=== PATIENT | female | born 1935 | race Caucasian/White ===

== ENCOUNTER 2018-04-24 22:08 | Inpatient (IN) | payer MEDICARE, MEDICAID ==
[~2018-04-24] VITALS: Ht 157.5 cm; Wt 73.5 kg
[~2018-04-24 22:08] MED LIST: ACTOS15 MG ORAL; ALBUTEROL SULF8.5 GM INH; ALLOPURINOL100 M1 ORAL; ATENOLOL25 MG ORAL; AZITHROMYCIN250 MG ORAL; CRESTOR10 M2 ORAL; DIOVAN80 MG ORAL; FUROSEMIDE20 M1 ORAL; GUAIFENESIN-CO118 M1 ORAL; NEXIUM2.5 MG ORAL
[2018-04-24] MEDS ORDERED: Solu-MEDROL 125mg Inj IVP ONE (22:15)
[2018-04-24 22:20] VITALS: BP 182/79
[2018-04-24 22:38] LABS: BASOPHILS % (AUTO) 1.3 % (0.0-2.0); EOSINOPHILS % (AUTO) 1.1 % (0.0-3.0); HEMATOCRIT 40.1 % (37.0-47.0); HEMOGLOBIN 13.7 G/DL (12.0-16.0); LYMPHOCYTES % (AUTO) 33.4 % (20.0-45.0); MEAN CORPUSCULAR VOLUME 89 FL (80-99); MONOCYTES % (AUTO) 5.3 % (1.0-10.0); NEUTROPHILS % (AUTO) 58.9 % (45.0-75.0); PLATELET COUNT 148 K/UL (150-450); RED CELL DISTRIBUTION WIDTH 11.6 % (11.6-14.8); WHITE BLOOD COUNT 8.7 K/UL (4.8-10.8)
[2018-04-24 22:48] LABS: ANION GAP 14 mmol/L (5-15); BLOOD UREA NITROGEN 24 mg/dL (7-18); CALCIUM 10.2 MG/DL (8.5-10.1); CARBON DIOXIDE 21 MMOL/L (21-32); CHLORIDE 102 MMOL/L (98-107); POTASSIUM 3.8 MMOL/L (3.5-5.1); SODIUM 137 MMOL/L (136-145)
[2018-04-24 22:51] LABS: INR 0.9 (0.9-1.1)
[2018-04-24] MEDS ORDERED: Albuterol/Ipratropium 3ml neb HHN ONE (23:00)
[2018-04-24 23:03] LABS: ALANINE AMINOTRANSFERASE 26 U/L (12-78); ALBUMIN 3.7 G/DL (3.4-5.0); ALBUMIN/GLOBULIN RATIO 0.8 (1.0-2.7); ALKALINE PHOSPHATASE 77 U/L (46-116); ASPARTATE AMINO TRANSFERASE 17 U/L (15-37); BILIRUBIN,TOTAL 0.2 MG/DL (0.2-1.0); CKMB 1.6 NG/ML (0.0-3.6); CREATINE KINASE 55 U/L (26-308)
[2018-04-24 23:20] VITALS: BP 170/76
[2018-04-24] MEDS ORDERED: Metoprolol 5mg/5ml Inj IVP ONE (23:45)
[2018-04-24] MEDS ORDERED: Metoprolol 5mg/5ml Inj ONE (23:45)
[2018-04-25] VITALS (7 sets, daily range): BP systolic 137–155; BP diastolic 64–87
--- NOTE | 2018-04-25 00:01 | Emergency Room Report ---
History of Present Illness General Chief Complaint: Upper Respiratory Illness Source: Patient, Family Member Present Illness HPI Is an 82-year-old female with history of asthma and high blood pressure. She presents with cough and respiratory distress. She's been having coughing congestion for about 2 weeks. Worse tonight. Worse with inspiration. Worse with exertion. EMS said that she has rest or distress and they gave her 5 mg of albuterol. Patient denies any chest pain. Coughing is nonproductive in nature. No fever chills but no nausea no vomiting. Allergies: Coded Allergies: No Known Allergies (Verified , 03/10/10) Patient History Past Medical History: see triage record, old chart reviewed, asthma Past Surgical History: none Pertinent Family History: none Social History: Denies: smoking Now: No Immunizations: other Reviewed Nursing Documentation: PMH: Agreed; PSxH: Agreed Nursing Documentation-PMH Past Medical History: No History, Except For Hx Cardiac Problems: Yes - high cholesterol Hx Hypertension: Yes Hx Diabetes: Yes Hx Gastrointestinal Problems: Yes Review of Systems Eye: Denies: eye pain, blurred vision ENT: Denies: ear pain, nose congestion, throat swelling Respiratory: Reports: cough, shortness of breath, wheezing Cardiovascular: Denies: chest pain, palpitations Gastrointestinal: Denies: abdominal pain, diarrhea, nausea, vomiting Musculoskeletal: Denies: back pain, joint pain Skin: Denies: rash Neurological: Denies: headache, numbness Endocrine: Denies: increased thirst, increased urine Hematologic/Lymphatic: Denies: easy bruising All Other Systems: negative except mentioned in HPI Physical Exam Vital Signs Date Time Temp Pulse Resp B/P (MAP) Pulse Ox O2 Delivery O2 Flow Rate FiO2 04/24/18 22:01 98.5 130 19 191/79 100 Room Air 98.4 04/24/18 23:00 21 vitals with tachycardia and hypertension Sp02 EP Interpretation: reviewed, normal General Appearance: well appearing, no apparent distress, alert Head: normocephalic, atraumatic Eyes: bilateral eye PERRL, bilateral eye EOMI ENT: hearing grossly normal, normal pharynx Neck: full range of motion, supple, no meningismus Respiratory: chest non-tender, lungs clear, respiratory distress, accessory muscle use, other - coughing fits Cardiovascular #1: regular rate, rhythm, no murmur, tachycardia Gastrointestinal: normal bowel sounds, non tender, no mass, no organomegaly, no bruit, non-distended Musculoskeletal: back normal, normal range of motion Neurologic: alert, oriented x3, responsive Psychiatric: mood/affect normal Skin: warm/dry Medical Decision Making Diagnostic Impression: Primary Impression: Upper respiratory symptom Additional Impressions: Acute bronchitis with bronchospasm Asthma exacerbation Qualified Codes: J45.901 - Unspecified asthma with (acute) exacerbation Hypertension Qualified Codes: I10 - Essential (primary) hypertension Hyperglycemia ER Course Patient presents with upper respiratory or infection with acute bronchitis with bronchospasm/asthma exacerbation. Better with breathing treatment and steroid. Because of the duration of over 2 weeks, I place her on antibiotics. No evidence of PE, ACS, dissection to name a few. We'll admit because patient still having respiratory problem. I discussed case with Dr. Summers who will admit. Laboratory Tests Test 04/24/18 20:20 04/24/18 23:30 White Blood Count 8.7 K/UL (4.8-10.8) Red Blood Count 4.50 M/UL (4.20-5.40) Hemoglobin 13.7 G/DL (12.0-16.0) Hematocrit 40.1 % (37.0-47.0) Mean Corpuscular Volume 89 FL (80-99) Mean Corpuscular Hemoglobin 30.5 PG (27.0-31.0) Mean Corpuscular Hemoglobin Concent 34.2 G/DL (32.0-36.0) Red Cell Distribution Width 11.6 % (11.6-14.8) Platelet Count 148 K/UL (150-450) L Mean Platelet Volume 9.4 FL (6.5-10.1) Neutrophils (%) (Auto) 58.9 % (45.0-75.0) Lymphocytes (%) (Auto) 33.4 % (20.0-45.0) Monocytes (%) (Auto) 5.3 % (1.0-10.0) Eosinophils (%) (Auto) 1.1 % (0.0-3.0) Basophils (%) (Auto) 1.3 % (0.0-2.0) Prothrombin Time 9.0 SEC (9.30-11.50) L Prothromb Time International Ratio 0.9 (0.9-1.1) Activated Partial Thromboplast Time 20 SEC (23-33) L Sodium Level 137 MMOL/L (136-145) Potassium Level 3.8 MMOL/L (3.5-5.1) Chloride Level 102 MMOL/L (98-107) Carbon Dioxide Level 21 MMOL/L (21-32) Anion Gap 14 mmol/L (5-15) Blood Urea Nitrogen 24 mg/dL (7-18) H Creatinine 1.0 MG/DL (0.55-1.30) Estimat Glomerular Filtration Rate mL/min (>60) Glucose Level 248 MG/DL (74-106) H Calcium Level 10.2 MG/DL (8.5-10.1) H Total Bilirubin 0.2 MG/DL (0.2-1.0) Aspartate Amino Transf (AST/SGOT) 17 U/L (15-37) Alanine Aminotransferase (ALT/SGPT) 26 U/L (12-78) Alkaline Phosphatase 77 U/L (46-116) Total Creatine Kinase 55 U/L (26-308) Creatine Kinase MB 1.6 NG/ML (0.0-3.6) Creatine Kinase MB Relative Index 2.9 Troponin I 0.000 ng/mL (0.000-0.056) Pro-B-Type Natriuretic Peptide 139 pg/mL (0-125) H Total Protein 8.1 G/DL (6.4-8.2) Albumin 3.7 G/DL (3.4-5.0) Globulin 4.4 g/dL Albumin/Globulin Ratio 0.8 (1.0-2.7) L Urine Color Pending Urine Appearance Pending Urine pH Pending Urine Specific [place] Pending Urine Protein Pending Urine Glucose (UA) Pending Urine Ketones Pending Urine Occult Blood Pending Urine Nitrite Pending Urine Bilirubin Pending Urine Urobilinogen Pending Urine Leukocyte Esterase Pending Lab Results Impression labs unremarkable EKG Diagnostic Results Rate: tachycardiac Rhythm: NSR ST Segments: no acute changes Rhythm Strip Diag. Results Rhythm Strip Time: 00:00 EP Interpretation: yes Rate: 95 Rhythm: NSR, no PVC's, no ectopy Chest X-Ray Diagnostic Results Chest X-Ray Diagnostic Results : Chest X-Ray Ordered: Yes # of Views/Limited/Complete: 1 View Indication: Shortness of Breath EP Interpretation: Yes Interpretation: no consolidation, no effusion, no pneumothorax, no acute cardiopulmonary disease Impression: No acute disease Electronically Signed by: John Coto MD Last Vital Signs Date Time Temp Pulse Resp B/P (MAP) Pulse Ox O2 Delivery O2 Flow Rate FiO2 04/24/18 23:48 121 180/80 04/24/18 23:10 21 98 Room Air 21 04/24/18 22:20 98.4 98.4 Status: improved Disposition: ADMITTED INPATIENT Condition: Serious Referrals: NON PHYSICIAN (PCP) JOHN COTO M.D. April 25, 2018 00:01
[2018-04-25 00:11] LABS: APPEARANCE,URINE CLEAR; BILIRUBIN, URINE NEGATIVE (NEGATIVE); COLOR,URINE PALE YELLOW; GLUCOSE, URINE (UA) 4+ (NEGATIVE); KETONES,URINE NEGATIVE (NEGATIVE); LEUKOCYTE ESTERASE ,URINE 1+ (NEGATIVE); NITRITE,URINE NEGATIVE (NEGATIVE); PH,URINE 5 (4.5-8.0); PROTEIN,URINE 2+ (NEGATIVE); UROBILINOGEN,URINE NORMAL MG/DL (0.0-1.0)
[2018-04-25] MEDS ORDERED: Milk of Magnesia 30ml Ud ORAL PRN ×2 (04:30→20:45)
[2018-04-25] MEDS: Albuterol/Ipratropium 3ml neb HHN PRN ×2 (05:48→09:02)
[2018-04-25] MEDS ORDERED: NovoLOG Insulin Flexpen SUBQ SCH (06:30)
[2018-04-25] MEDS: Albuterol 90mcg Inhaler 8gm INH SCH ×5 (07:55→22:40)
--- NOTE | 2018-04-25 08:55 | Diagnostic Imaging Report ---
Indication: Reason For Exam: SOB, cough Technique: XRAY Chest 1v. Comparison: 10/06/2013 Findings: The heart is normal in size. There are no acute pulmonary infiltrates. Scarring is noted adjacent to the left heart border. No pleural fluid. Impression: No acute abnormality. No significant change from previous study. .
[2018-04-25] MEDS ORDERED: metFORMIN 500mg tab ORAL SCH (09:00)
[2018-04-25] MEDS ORDERED: Solu-MEDROL 125mg Inj IVP SCH (09:00)
[2018-04-25] MEDS: Pantoprazole Inj IVP SCH (09:02)
[2018-04-25] MEDS: guaiFENesin w/Codeine 5ml Liq ud ORAL PRN ×2 (09:02→21:51)
[2018-04-25] MEDS: Allopurinol 100mg Tab ORAL SCH (09:04)
[2018-04-25] MEDS: Azithromycin 250mg tab ORAL SCH (09:04)
[2018-04-25] MEDS: Atenolol 25mg tab ORAL SCH (09:04)
[2018-04-25] MEDS: cefTRIAXone 1 GM in D5W 55 ML IVPB SCH (10:44)
[2018-04-25] MEDS: Heparin 5000 units/ml inj SUBQ SCH ×2 (11:00→21:45)
[2018-04-25 11:10] LABS: HEMOGLOBIN 12.3 G/DL (12.0-16.0); MEAN CORPUSCULAR VOLUME 92 FL (80-99); PLATELET COUNT 146 K/UL (150-450); RED BLOOD COUNT 4.02 M/UL (4.20-5.40); RED CELL DISTRIBUTION WIDTH 11.9 % (11.6-14.8); WHITE BLOOD COUNT 10.4 K/UL (4.8-10.8)
[2018-04-25 11:31] LABS: ANION GAP 15 mmol/L (5-15); BLOOD UREA NITROGEN 27 mg/dL (7-18); CALCIUM 9.8 MG/DL (8.5-10.1); CARBON DIOXIDE 21 MMOL/L (21-32); CHLORIDE 104 MMOL/L (98-107); CREATININE 1.3 MG/DL (0.55-1.30); POTASSIUM 4.4 MMOL/L (3.5-5.1); SODIUM 140 MMOL/L (136-145)
[2018-04-25] MEDS: Solu-MEDROL 125mg Inj IVP SCH ×2 (15:27→21:42)
--- NOTE | 2018-04-25 16:15 | History and Physical Report ---
DATE OF ADMISSION: 04/24/2018 REASON FOR ADMISSION: Asthma exacerbation, shortness of breath, and acute bronchospasm. HISTORY OF PRESENT ILLNESS: This is an 82-year-old female with history of asthma, which is intermittent. The patient presents with cough, congestion, and respiratory distress. The patient has been coughing for the past 2 weeks. The patient notes pain with deep inspiration, worse with exertion. The patient did not improve overall. The patient presented to the emergency room and was diagnosed with acute bronchitis, acute bronchospasm. The patient's care discussed and reviewed with the ER physician and the patient in detail. The patient denies the use of inhalers at present. She currently is still concerned that she continues to cough and has difficulty with breathing. The patient has had no ill contacts. No fevers or chills. No chest trauma. The patient's findings reviewed in detail and discussed with the patient. PAST MEDICAL HISTORY: Notable for asthma intermittent, gout, hypertension, reflux disease, and diabetes. MEDICATIONS: Reviewed. ALLERGIES: Reviewed. SOCIAL HISTORY: Nonsmoker and nondrinker. The patient is of [place] descent. PHYSICAL EXAMINATION: GENERAL: A well-developed female, obese, comfortable, alert. VITAL SIGNS: Blood pressure 147/64, pulse 89, respiratory rate 22, saturation 99% on 2 L. HEENT: Negative. NECK: Supple. EXTREMITIES: Grossly intact. LUNGS: With occasional wheezes. Moderate air entry. CARDIAC: S1, S2. Regular rate and rhythm without murmurs, rubs, or gallops. ABDOMEN: Soft, nontender, and nondistended. EXTREMITIES: No cyanosis, clubbing, or edema. NEUROLOGIC: Grossly nonfocal. Alert and oriented x3. LABORATORY DATA: Otherwise reviewed. CBC essentially normal. Chemistry is fairly normal. BUN 24, creatinine 1, blood sugar is 248. The EKG without any acute changes, normal sinus rhythm. Chest x-ray essentially negative. IMPRESSION: Asthma with acute exacerbation, possible mild acute bronchitis, significant cough paroxysms. RECOMMENDATIONS: Supportive care. Empiric antibiotics. Diabetic management. Sliding scale insulin. IV Solu-Medrol and monitor clinically. Cough suppression as needed and hope to proceed with discharge planning pending further improvement. Emre Ishaaya, M.D. DR: IAN JOB#: [id number] CC:
[2018-04-25] MEDS: Insulin NovoLOG Flexpen S/S (Ins resistant) SUBQ SCH ×2 (16:30→21:44)
[2018-04-25] MEDS: Repaglinide 1mg tab ORAL SCH (17:26)
[2018-04-25] MEDS ORDERED: Zolpidem 5mg tab ORAL PRN (21:00)
[2018-04-25] MEDS: Milk of Magnesia 30ml Ud ORAL PRN (21:42)
[2018-04-25] MEDS: Docusate 100mg cap ORAL SCH (22:00)
[2018-04-26] VITALS: BP 116/85
[2018-04-26] MEDS: Albuterol 90mcg Inhaler 8gm INH SCH ×8 (01:04→22:30)
[2018-04-26 04:00] VITALS: BP 141/78
[2018-04-26] MEDS: Solu-MEDROL 125mg Inj IVP SCH ×3 (05:59→21:26)
[2018-04-26] MEDS: Repaglinide 1mg tab ORAL SCH ×2 (06:00→17:09)
[2018-04-26] MEDS: Insulin NovoLOG Flexpen S/S (Ins resistant) SUBQ SCH ×4 (06:03→21:32)
[2018-04-26 08:00] VITALS: BP 143/78
[2018-04-26] MEDS: cefTRIAXone 1 GM in D5W 55 ML IVPB SCH (08:31)
[2018-04-26] MEDS: Pantoprazole Inj IVP SCH (08:31)
[2018-04-26] MEDS: Azithromycin 250mg tab ORAL SCH (08:31)
[2018-04-26] MEDS: Allopurinol 100mg Tab ORAL SCH (08:32)
[2018-04-26] MEDS: Atenolol 25mg tab ORAL SCH (08:32)
[2018-04-26] MEDS: Docusate 100mg cap ORAL SCH ×2 (08:32→17:09)
[2018-04-26] MEDS: Heparin 5000 units/ml inj SUBQ SCH ×2 (08:33→21:27)
--- NOTE | 2018-04-26 11:57 | General Progress Note ---
Assessment/Plan Assessment/Plan IMPRESSION: Asthma with acute exacerbation, possible mild acute bronchitis, significant cough paroxysms. constipation. UTI, diabetes PLAN adjust antibiotics add cefepime dc rocephin solumedrol sliding scale cough syrup monitor as is Subjective Allergies: Coded Allergies: No Known Allergies (Verified , 03/10/10) Subjective cough present but better constipated Objective Last 24 Hour Vital Signs Date Time Temp Pulse Resp B/P (MAP) Pulse Ox O2 Delivery O2 Flow Rate FiO2 04/26/18 11:19 80 16 97 Nasal Cannula 2.0 04/26/18 11:19 80 16 97 Nasal Cannula 2.0 04/26/18 08:32 82 141/78 04/26/18 08:00 97.5 85 18 143/78 93 Nasal Cannula 2.0 97.5 04/26/18 07:00 Nasal Cannula 2.0 04/26/18 07:00 82 18 97 Nasal Cannula 2.0 04/26/18 07:00 2 18 Nasal Cannula 2.0 04/26/18 07:00 97 Nasal Cannula 2.0 04/26/18 07:00 82 18 97 Nasal Cannula 2.0 04/26/18 04:00 97.1 88 22 141/78 95 97.1 04/26/18 04:00 98 Nasal Cannula 2.0 04/26/18 00:00 97.7 102 22 116/85 97 97.7 04/25/18 22:40 95 Nasal Cannula 2.0 04/25/18 22:40 Nasal Cannula 2.0 04/25/18 22:40 92 20 Nasal Cannula 2.0 04/25/18 20:55 95 Nasal Cannula 2.0 04/25/18 20:55 Nasal Cannula 2.0 04/25/18 20:55 90 18 Nasal Cannula 2.0 04/25/18 20:00 98 Nasal Cannula 2.0 04/25/18 20:00 98.3 95 19 141/87 95 98.3 04/25/18 16:00 98.0 92 20 144/78 98 Nasal Cannula 2.0 98.0 04/25/18 12:00 98.0 93 21 146/86 99 Nasal Cannula 2.0 98.0 Intake and Output 04/25/18 04/26/18 19:00 07:00 Intake Total 555 ml 240 ml Balance 555 ml 240 ml Intake Oral 500 ml 240 ml IV Total 55 ml # Voids 3 2 Labs Test 04/24/18 20:20 04/24/18 23:30 04/25/18 10:55 White Blood Count 8.7 K/UL (4.8-10.8) 10.4 K/UL (4.8-10.8) Red Blood Count 4.50 M/UL (4.20-5.40) 4.02 M/UL (4.20-5.40) Hemoglobin 13.7 G/DL (12.0-16.0) 12.3 G/DL (12.0-16.0) Hematocrit 40.1 % (37.0-47.0) 37.0 % (37.0-47.0) Mean Corpuscular Volume 89 FL (80-99) 92 FL (80-99) Mean Corpuscular Hemoglobin 30.5 PG (27.0-31.0) 30.5 PG (27.0-31.0) Mean Corpuscular Hemoglobin Concent 34.2 G/DL (32.0-36.0) 33.1 G/DL (32.0-36.0) Red Cell Distribution Width 11.6 % (11.6-14.8) 11.9 % (11.6-14.8) Platelet Count 148 K/UL (150-450) 146 K/UL (150-450) Mean Platelet Volume 9.4 FL (6.5-10.1) 9.2 FL (6.5-10.1) Neutrophils (%) (Auto) 58.9 % (45.0-75.0) % (45.0-75.0) Lymphocytes (%) (Auto) 33.4 % (20.0-45.0) % (20.0-45.0) Monocytes (%) (Auto) 5.3 % (1.0-10.0) % (1.0-10.0) Eosinophils (%) (Auto) 1.1 % (0.0-3.0) % (0.0-3.0) Basophils (%) (Auto) 1.3 % (0.0-2.0) % (0.0-2.0) Prothrombin Time 9.0 SEC (9.30-11.50) Prothromb Time International Ratio 0.9 (0.9-1.1) Activated Partial Thromboplast Time 20 SEC (23-33) Sodium Level 137 MMOL/L (136-145) 140 MMOL/L (136-145) Potassium Level 3.8 MMOL/L (3.5-5.1) 4.4 MMOL/L (3.5-5.1) Chloride Level 102 MMOL/L (98-107) 104 MMOL/L (98-107) Carbon Dioxide Level 21 MMOL/L (21-32) 21 MMOL/L (21-32) Anion Gap 14 mmol/L (5-15) 15 mmol/L (5-15) Blood Urea Nitrogen 24 mg/dL (7-18) 27 mg/dL (7-18) Creatinine 1.0 MG/DL (0.55-1.30) 1.3 MG/DL (0.55-1.30) Estimat Glomerular Filtration Rate mL/min (>60) mL/min (>60) Glucose Level 248 MG/DL (74-106) 400 MG/DL (74-106) Calcium Level 10.2 MG/DL (8.5-10.1) 9.8 MG/DL (8.5-10.1) Total Bilirubin 0.2 MG/DL (0.2-1.0) Aspartate Amino Transf (AST/SGOT) 17 U/L (15-37) Alanine Aminotransferase (ALT/SGPT) 26 U/L (12-78) Alkaline Phosphatase 77 U/L (46-116) Total Creatine Kinase 55 U/L (26-308) Creatine Kinase MB 1.6 NG/ML (0.0-3.6) Creatine Kinase MB Relative Index 2.9 Troponin I 0.000 ng/mL (0.000-0.056) Pro-B-Type Natriuretic Peptide 139 pg/mL (0-125) Total Protein 8.1 G/DL (6.4-8.2) Albumin 3.7 G/DL (3.4-5.0) Globulin 4.4 g/dL Albumin/Globulin Ratio 0.8 (1.0-2.7) Urine Color Pale yellow Urine Appearance Clear Urine pH 5 (4.5-8.0) Urine Specific [place] 1.010 (1.005-1.035) Urine Protein 2+ (NEGATIVE) Urine Glucose (UA) 4+ (NEGATIVE) Urine Ketones Negative (NEGATIVE) Urine Occult Blood 1+ (NEGATIVE) Urine Nitrite Negative (NEGATIVE) Urine Bilirubin Negative (NEGATIVE) Urine Urobilinogen Normal MG/DL (0.0-1.0) Urine Leukocyte Esterase 1+ (NEGATIVE) Urine RBC 0-2 /HPF (0 - 2) Urine WBC 15-20 /HPF (0 - 2) Urine Squamous Epithelial Cells Few /LPF (NONE/OCC) Urine Bacteria Many /HPF (NONE) Differential Total Cells Counted 100 Neutrophils % (Manual) 90 % (45-75) Lymphocytes % (Manual) 8 % (20-45) Monocytes % (Manual) 2 % (1-10) Eosinophils % (Manual) 0 % (0-3) Basophils % (Manual) 0 % (0-2) Band Neutrophils 0 % (0-8) Platelet Estimate Decreased Platelet Morphology Normal Red Blood Cell Morphology Normal Height (Feet): 5 Height (Inches): 2.00 Weight (Pounds): 158 Objective HEENT: Negative. NECK: Supple. EXTREMITIES: Grossly intact. LUNGS: With some wheezes. Moderate air entry. no rhonchi; noted cough CARDIAC: S1, S2. Regular rate and rhythm without murmurs, rubs, or gallops. ABDOMEN: Soft, nontender, and nondistended. EXTREMITIES: No cyanosis, clubbing, or edema. NEUROLOGIC: Grossly nonfocal. Alert and oriented x3. mEre Summers MD April 26, 2018 11:57
[2018-04-26 12:00] VITALS: BP 153/77
[2018-04-26] MEDS: guaiFENesin w/Codeine 5ml Liq ud ORAL PRN ×2 (14:08→18:37)
[2018-04-26 15:31] VITALS: BP 118/57
[2018-04-26] MEDS: Cefepime HCl 1 GM in D5W 110 ML IVPB SCH (17:12)
[2018-04-26 20:00] VITALS: BP 135/73
[2018-04-26] MEDS ORDERED: Cefepime HCl 1 GM in D5W 110 ML IVPB SCH (21:00)
[2018-04-27] VITALS: BP 127/60
[2018-04-27] MEDS: Albuterol 90mcg Inhaler 8gm INH SCH ×8 (01:07→22:46)
[2018-04-27 04:00] VITALS: BP 137/72
[2018-04-27] MEDS: Repaglinide 1mg tab ORAL SCH ×2 (06:07→17:29)
[2018-04-27] MEDS: Solu-MEDROL 125mg Inj IVP SCH ×3 (06:08→21:57)
[2018-04-27] MEDS: Insulin NovoLOG Flexpen S/S (Ins resistant) SUBQ SCH ×4 (06:10→21:58)
[2018-04-27 08:00] VITALS: BP 132/57
[2018-04-27] MEDS: Pantoprazole Inj IVP SCH (08:48)
[2018-04-27] MEDS: Allopurinol 100mg Tab ORAL SCH (08:48)
[2018-04-27] MEDS: Atenolol 25mg tab ORAL SCH (08:48)
[2018-04-27] MEDS: Azithromycin 250mg tab ORAL SCH (08:48)
[2018-04-27] MEDS: Docusate 100mg cap ORAL SCH ×2 (08:48→18:00)
[2018-04-27] MEDS: Heparin 5000 units/ml inj SUBQ SCH ×2 (08:49→08:52)
[2018-04-27] MEDS ORDERED: cefTRIAXone 1 GM in D5W 110 ML IVPB SCH (09:00)
--- NOTE | 2018-04-27 09:24 | General Progress Note ---
Assessment/Plan Assessment/Plan IMPRESSION: Asthma with acute exacerbation, possible mild acute bronchitis, significant cough paroxysms. constipation. UTI, diabetes PLAN ? po antibiotics solumedrol ?po sliding scale and monitor sugars cough syrup as needed reassurance dc planning soon Subjective Allergies: Coded Allergies: No Known Allergies (Verified , 03/10/10) Subjective some improvement some cough Objective Last 24 Hour Vital Signs Date Time Temp Pulse Resp B/P (MAP) Pulse Ox O2 Delivery O2 Flow Rate FiO2 04/27/18 08:48 77 132/57 04/27/18 08:14 99 Nasal Cannula 2.0 28 04/27/18 08:14 77 18 99 Nasal Cannula 2.0 28 04/27/18 08:14 75 18 97 Nasal Cannula 2.0 28 04/27/18 08:14 78 20 Nasal Cannula 2.0 04/27/18 08:14 Nasal Cannula 2.0 28 04/27/18 08:00 98.1 71 132/57 97 Nasal Cannula 2.0 98.1 04/27/18 04:30 80 18 98 Nasal Cannula 2.0 28 04/27/18 04:20 78 18 96 Nasal Cannula 2.0 28 04/27/18 04:00 97.2 75 20 137/72 96 97.2 04/27/18 04:00 96 Nasal Cannula 2.0 04/27/18 01:08 Nasal Cannula 2.0 04/27/18 01:08 Nasal Cannula 2.0 04/27/18 00:00 100 Nasal Cannula 2.0 04/27/18 00:00 98.0 74 20 127/60 100 98.0 04/26/18 22:29 Nasal Cannula 2.0 04/26/18 22:29 Nasal Cannula 2.0 04/26/18 20:00 98.2 80 20 135/73 95 98.2 04/26/18 20:00 98 Nasal Cannula 2.0 04/26/18 19:28 76 18 97 Nasal Cannula 2.0 04/26/18 19:28 72 18 97 Nasal Cannula 2.0 04/26/18 19:24 Nasal Cannula 2.0 04/26/18 19:24 78 20 Nasal Cannula 2.0 04/26/18 19:24 97 Nasal Cannula 2.0 04/26/18 15:31 97.8 80 20 118/57 99 Nasal Cannula 2.0 97.8 04/26/18 15:19 85 16 97 Nasal Cannula 2.0 28 04/26/18 15:18 83 16 97 Nasal Cannula 2.0 28 04/26/18 13:50 Room Air 04/26/18 13:49 Room Air 04/26/18 12:00 97.6 74 20 153/77 100 Nasal Cannula 2.0 97.6 04/26/18 11:19 80 16 97 Nasal Cannula 2.0 28 04/26/18 11:19 80 16 97 Nasal Cannula 2.0 28 Intake and Output 04/26/18 04/27/18 19:00 07:00 Intake Total 670 ml 600 ml Balance 670 ml 600 ml Intake Oral 560 ml 600 ml IV Total 110 ml # Voids 5 4 Labs Test 04/24/18 20:20 04/24/18 23:30 04/25/18 10:55 White Blood Count 8.7 K/UL (4.8-10.8) 10.4 K/UL (4.8-10.8) Red Blood Count 4.50 M/UL (4.20-5.40) 4.02 M/UL (4.20-5.40) Hemoglobin 13.7 G/DL (12.0-16.0) 12.3 G/DL (12.0-16.0) Hematocrit 40.1 % (37.0-47.0) 37.0 % (37.0-47.0) Mean Corpuscular Volume 89 FL (80-99) 92 FL (80-99) Mean Corpuscular Hemoglobin 30.5 PG (27.0-31.0) 30.5 PG (27.0-31.0) Mean Corpuscular Hemoglobin Concent 34.2 G/DL (32.0-36.0) 33.1 G/DL (32.0-36.0) Red Cell Distribution Width 11.6 % (11.6-14.8) 11.9 % (11.6-14.8) Platelet Count 148 K/UL (150-450) 146 K/UL (150-450) Mean Platelet Volume 9.4 FL (6.5-10.1) 9.2 FL (6.5-10.1) Neutrophils (%) (Auto) 58.9 % (45.0-75.0) % (45.0-75.0) Lymphocytes (%) (Auto) 33.4 % (20.0-45.0) % (20.0-45.0) Monocytes (%) (Auto) 5.3 % (1.0-10.0) % (1.0-10.0) Eosinophils (%) (Auto) 1.1 % (0.0-3.0) % (0.0-3.0) Basophils (%) (Auto) 1.3 % (0.0-2.0) % (0.0-2.0) Prothrombin Time 9.0 SEC (9.30-11.50) Prothromb Time International Ratio 0.9 (0.9-1.1) Activated Partial Thromboplast Time 20 SEC (23-33) Sodium Level 137 MMOL/L (136-145) 140 MMOL/L (136-145) Potassium Level 3.8 MMOL/L (3.5-5.1) 4.4 MMOL/L (3.5-5.1) Chloride Level 102 MMOL/L (98-107) 104 MMOL/L (98-107) Carbon Dioxide Level 21 MMOL/L (21-32) 21 MMOL/L (21-32) Anion Gap 14 mmol/L (5-15) 15 mmol/L (5-15) Blood Urea Nitrogen 24 mg/dL (7-18) 27 mg/dL (7-18) Creatinine 1.0 MG/DL (0.55-1.30) 1.3 MG/DL (0.55-1.30) Estimat Glomerular Filtration Rate mL/min (>60) mL/min (>60) Glucose Level 248 MG/DL (74-106) 400 MG/DL (74-106) Calcium Level 10.2 MG/DL (8.5-10.1) 9.8 MG/DL (8.5-10.1) Total Bilirubin 0.2 MG/DL (0.2-1.0) Aspartate Amino Transf (AST/SGOT) 17 U/L (15-37) Alanine Aminotransferase (ALT/SGPT) 26 U/L (12-78) Alkaline Phosphatase 77 U/L (46-116) Total Creatine Kinase 55 U/L (26-308) Creatine Kinase MB 1.6 NG/ML (0.0-3.6) Creatine Kinase MB Relative Index 2.9 Troponin I 0.000 ng/mL (0.000-0.056) Pro-B-Type Natriuretic Peptide 139 pg/mL (0-125) Total Protein 8.1 G/DL (6.4-8.2) Albumin 3.7 G/DL (3.4-5.0) Globulin 4.4 g/dL Albumin/Globulin Ratio 0.8 (1.0-2.7) Urine Color Pale yellow Urine Appearance Clear Urine pH 5 (4.5-8.0) Urine Specific [place] 1.010 (1.005-1.035) Urine Protein 2+ (NEGATIVE) Urine Glucose (UA) 4+ (NEGATIVE) Urine Ketones Negative (NEGATIVE) Urine Occult Blood 1+ (NEGATIVE) Urine Nitrite Negative (NEGATIVE) Urine Bilirubin Negative (NEGATIVE) Urine Urobilinogen Normal MG/DL (0.0-1.0) Urine Leukocyte Esterase 1+ (NEGATIVE) Urine RBC 0-2 /HPF (0 - 2) Urine WBC 15-20 /HPF (0 - 2) Urine Squamous Epithelial Cells Few /LPF (NONE/OCC) Urine Bacteria Many /HPF (NONE) Differential Total Cells Counted 100 Neutrophils % (Manual) 90 % (45-75) Lymphocytes % (Manual) 8 % (20-45) Monocytes % (Manual) 2 % (1-10) Eosinophils % (Manual) 0 % (0-3) Basophils % (Manual) 0 % (0-2) Band Neutrophils 0 % (0-8) Platelet Estimate Decreased Platelet Morphology Normal Red Blood Cell Morphology Normal Height (Feet): 5 Height (Inches): 2.00 Weight (Pounds): 162 Objective HEENT: Negative. NECK: Supple. EXTREMITIES: Grossly intact. LUNGS: reduced wheezes. Moderate air entry. no rhonchi; noted cough CARDIAC: S1, S2. Regular rate and rhythm without murmurs, rubs, or gallops. ABDOMEN: Soft, nontender, and nondistended. EXTREMITIES: No cyanosis, clubbing, or edema. NEUROLOGIC: Grossly nonfocal. Alert and oriented x3. Emre Summers MD April 27, 2018 09:24
[2018-04-27 12:00] VITALS: BP 128/93
[2018-04-27] MEDS: guaiFENesin w/Codeine 5ml Liq ud ORAL PRN (15:00)
[2018-04-27 16:00] VITALS: BP 137/70
[2018-04-27] MEDS: Milk of Magnesia 30ml Ud ORAL PRN (16:24)
[2018-04-27] MEDS ORDERED: Fleet's Enema 133ml RECTAL ONE (17:00)
[2018-04-27] MEDS: Cefepime HCl 1 GM in D5W 110 ML IVPB SCH (18:09)
[2018-04-27 20:00] VITALS: BP 163/87
[2018-04-27] MEDS ORDERED: Tubing IV Secondary IV ONE (20:13)
[2018-04-27] MEDS ORDERED: NS 500ML ONE (20:13)
[2018-04-28] MEDS: Albuterol 90mcg Inhaler 8gm INH SCH ×4 (01:25→11:07)
[2018-04-28 04:00] VITALS: BP 145/76
[2018-04-28] MEDS: Repaglinide 1mg tab ORAL SCH (06:08)
[2018-04-28] MEDS: Solu-MEDROL 125mg Inj IVP SCH (06:08)
[2018-04-28] MEDS: Insulin NovoLOG Flexpen S/S (Ins resistant) SUBQ SCH ×2 (06:09→11:50)
[2018-04-28 08:00] VITALS: BP 157/116
--- NOTE | 2018-04-28 08:41 | General Progress Note ---
Assessment/Plan Assessment/Plan IMPRESSION: Asthma with acute exacerbation, possible mild acute bronchitis, significant cough paroxysms. constipation. UTI, diabetes PLAN zpak medrol pete breo, singulair cough syrup as needed reassurance dc planning today home health on dc spoke to family at length dispo discussed gi prior to dc Subjective Allergies: Coded Allergies: No Known Allergies (Verified , 03/10/10) Subjective much improved had BM needed enema Objective Last 24 Hour Vital Signs Date Time Temp Pulse Resp B/P (MAP) Pulse Ox O2 Delivery O2 Flow Rate FiO2 04/28/18 07:55 76 20 98 Nasal Cannula 2.0 28 04/28/18 07:54 98 Nasal Cannula 2.0 28 04/28/18 07:54 Nasal Cannula 2.0 28 04/28/18 04:43 73 18 97 Nasal Cannula 2.0 28 04/28/18 04:41 73 18 97 Nasal Cannula 2.0 28 04/28/18 04:00 97.1 58 19 145/76 96 Nasal Cannula 97.1 04/28/18 01:27 70 18 98 Nasal Cannula 2.0 28 04/28/18 01:25 72 18 98 Nasal Cannula 2.0 28 04/27/18 22:48 72 18 98 Nasal Cannula 2.0 28 04/27/18 22:46 70 18 98 Nasal Cannula 2.0 28 04/27/18 20:00 97.8 65 20 163/87 98 Nasal Cannula 97.8 04/27/18 19:44 77 18 96 Nasal Cannula 2.0 28 04/27/18 19:42 Nasal Cannula 2.0 28 04/27/18 19:42 76 18 Nasal Cannula 2.0 28 04/27/18 19:42 96 Nasal Cannula 2.0 28 04/27/18 19:42 74 18 96 Nasal Cannula 2.0 28 04/27/18 16:00 97.6 67 137/70 96 Nasal Cannula 2.0 97.6 04/27/18 15:42 76 18 98 Nasal Cannula 2.0 28 04/27/18 15:42 79 18 99 Nasal Cannula 2.0 28 04/27/18 13:58 74 18 98 Nasal Cannula 2.0 28 04/27/18 13:58 79 18 99 Nasal Cannula 2.0 28 04/27/18 12:00 97.4 69 128/93 97 Nasal Cannula 2.0 97.4 04/27/18 11:12 77 18 99 Nasal Cannula 2.0 28 04/27/18 11:12 77 18 99 Nasal Cannula 2.0 28 04/27/18 08:48 77 132/57 Intake and Output 04/27/18 04/28/18 19:00 07:00 Intake Total 500 ml 120 ml Balance 500 ml 120 ml Intake Oral 500 ml 120 ml # Voids 3 2 Height (Feet): 5 Height (Inches): 2.00 Weight (Pounds): 162 Objective HEENT: Negative. NECK: Supple. EXTREMITIES: Grossly intact. LUNGS: improved wheezes. Moderate air entry. no rhonchi; noted cough CARDIAC: S1, S2. Regular rate and rhythm without murmurs, rubs, or gallops. ABDOMEN: Soft, nontender, and nondistended. no HSM EXTREMITIES: No cyanosis, clubbing, or edema. NEUROLOGIC: Grossly nonfocal. Alert and oriented x3. reviewed and edited Emre Summers MD April 28, 2018 08:41
[2018-04-28] MEDS: Docusate 100mg cap ORAL SCH (09:00)
[2018-04-28] MEDS: Allopurinol 100mg Tab ORAL SCH (09:01)
[2018-04-28 09:02] VITALS: BP 157/116
[2018-04-28] MEDS: Atenolol 25mg tab ORAL SCH (09:02)
[2018-04-28] MEDS: Azithromycin 250mg tab ORAL SCH (09:02)
[2018-04-28] MEDS: Heparin 5000 units/ml inj SUBQ SCH (09:03)
--- NOTE | 2018-04-28 09:53 | GI Initial Consult Note ---
History of Present Illness General Date patient seen: April 28, 2018 Time patient seen: 11:00 Reason for Hospitalization: Upper Respiratory Illness Referring physician: CONCHIS PISANO Reason for Consultation: SEVERE CONSTIPATION Present Illness HPI Is an 82-year-old female with history of asthma and high blood pressure. She presents with cough and respiratory distress. She's been having coughing congestion for about 2 weeks. Worse tonight. Worse with inspiration. Worse with exertion. EMS said that she has rest or distress and they gave her 5 mg of albuterol. Patient denies any chest pain. Coughing is nonproductive in nature. No fever chills but no nausea no vomiting. GI consulted for severe constipation. Pt seen, awake A&OX4 NAD with no active s/sx of N/V/D. C/o of constipation x 8 days. Was given an emema yesterday, had a small BM today. Denies any narcotic use for pain. Abdomen was soft, non distended, non tender to palpation. Last colonoscopy was performed 5 years ago. The patient is concern that she may have colon cancer. Denies any unintentional weight loss or changes in dietary habits. No signs of abuse or neglect. Patient is not fall risk. Home Meds Active Scripts Albuterol Sulfate* (ALBUTEROL SULFATE MDI*) 8.5 Gm Hfa.aer.ad, 2 PUFF INH Q3H, # 1 INH 0 Refills Prov:MARTHA BRAVO D.O. 10/06/13 Guaifenesin/Codeine Phos* (ROBITUSSIN AC*) 118 Ml Liquid, 1 TSP ORAL Q4H PRN for For Cough, #118 ML 0 Refills Prov:MARTHA BRAVO D.O. 10/06/13 Azithromycin* (ZITHROMAX*) 250 Mg Tablet, 250 MG ORAL DAILY, #6 TAB 0 Refills Take two tablets by mouth today, then take one tablet by mouth daily for four days Prov:MARTHA BRAVO D.O. 10/06/13 Reported Medications Linaclotide (LINZESS) 145 Mcg Capsule, 145 MCG PO DAILY, CAP 04/28/18 Montelukast Sodium (SINGULAIR) 4 Mg Gran.pack, 10 MG ORAL DAILY, PKT 04/28/18 Albuterol Sulfate (PROVENTIL HFA) 6.7 Gm Hfa.aer.ad, 6.7 GM IH Q4HR 04/28/18 Fluticasone/Vilanterol (Breo Ellipta 200-25 Mcg INH) 1 Each Blst.w.dev, 1 EACH IH DAILY 04/28/18 Lubiprostone (AMITIZA) 8 Mcg Capsule, 24 MCG ORAL EVERY 12 HOURS, CAP 04/28/18 Dextromethorphan Hbr/Chlor-Mal (ROBITUSSIN LONG-ACTING LIQ) 118 Ml Liquid, 300 ML PO Q4HR, ML 04/28/18 Esomeprazole Magnesium (NEXIUM) 2.5 Mg Suspdr.pkt, 2.5 MG ORAL DAILY, PKT 04/24/18 Furosemide* (LASIX*) 20 Mg Tablet, 20 MG ORAL DAILY, TAB 04/24/18 Valsartan (DIOVAN) 80 Mg Tab, 80 MG ORAL DAILY, TAB 04/24/18 Rosuvastatin Calcium* (CRESTOR*) 10 Mg Tablet, 10 MG ORAL DAILY, TAB 04/24/18 Atenolol* (TENORMIN*) 25 Mg Tablet, 25 MG ORAL DAILY, TAB 04/24/18 Allopurinol* (ALLOPURINOL*) 100 Mg Tablet, 100 MG ORAL DAILY, TAB 04/24/18 Pioglitazone Hcl* (ACTOS*) 15 Mg Tablet, 15 MG ORAL DAILY, TAB 04/24/18 Med list reviewed/reconciled: Yes Allergies: Coded Allergies: No Known Allergies (Verified , 03/10/10) Patient History History Provided By: Patient, Medical Record PMH Narrative Past Medical History: see triage record, old chart reviewed, asthma Past Surgical History: none Pertinent Family History: none Social History: Denies: smoking Now: No Immunizations: other Reviewed Nursing Documentation: PMH: Agreed; PSxH: Agreed Nursing Documentation-PMH Past Medical History: No History, Except For Hx Cardiac Problems: Yes - high cholesterol Hx Hypertension: Yes Hx Diabetes: Yes Hx Gastrointestinal Problems: Yes Social History: Denies: smoking, alcohol use, drug use, other Review of Systems All Other Systems: negative except mentioned in HPI Physical Exam Vital Signs Date Time Temp Pulse Resp B/P (MAP) Pulse Ox O2 Delivery O2 Flow Rate FiO2 04/24/18 22:01 98.5 130 19 191/79 100 Room Air 98.4 04/24/18 23:00 21 04/25/18 04:00 2.0 Sp02 EP Interpretation: reviewed, normal General Appearance: well appearing, no apparent distress, alert, obese Head: normocephalic EENT: PERRL/EOMI, normal ENT inspection Neck: supple Respiratory: normal breath sounds, no respiratory distress Cardiovascular: normal rate Gastrointestinal: normal inspection, non tender, soft, normal bowel sounds, non -distended Rectal: deferred Genitourinary: no CVA tenderness Musculoskeletal: normal inspection, back normal Neurologic: normal inspection, alert, oriented x3, responsive Psychiatric: normal inspection, judgement/insight normal, memory normal Skin: normal inspection, normal color, no rash, warm/dry, palpation normal, well hydrated Lymphatic: normal inspection, no adenopathy Current Medications Current Medications Medications (Trade) Dose Ordered Sig/Isidoro Route PRN Reason Start Time Stop Time Status Last Admin Dose Admin Acetaminophen (Tylenol) 650 mg Q4H PRN ORAL Mild Pain/Temp > 100.5 04/25/18 04:30 05/25/18 04:29 Al Hydroxide/Mg Hydroxide (Mylanta) 30 ml Q4H PRN ORAL heartburn 04/25/18 04:30 05/25/18 04:29 Albuterol Sulfate (Proventil MDI) 2 puff Q3H INH 04/25/18 04:30 05/25/18 04:29 04/28/18 07:54 Albuterol/ Ipratropium (Albuterol/ Ipratropium) 3 ml Q4H PRN HHN Shortness of Breath 04/25/18 04:30 04/30/18 04:29 04/25/18 09:02 Allopurinol (Zyloprim) 100 mg DAILY ORAL 04/25/18 09:00 05/25/18 08:59 04/28/18 09:01 Atenolol (Tenormin) 25 mg DAILY ORAL 04/25/18 09:00 05/25/18 08:59 04/28/18 09:02 Azithromycin (Zithromax) 250 mg DAILY ORAL 04/25/18 09:00 05/02/18 08:59 04/28/18 09:02 Cefepime HCl 1 gm/ Dextrose 110 ml @ 220 mls/hr Q24H IVPB 04/26/18 18:00 05/03/18 17:59 04/27/18 18:09 Dextrose (Dextrose 50%) 25 ml PRN IV hypoglycemia 04/25/18 16:30 05/25/18 16:29 Dextrose (Dextrose 50%) 50 ml PRN IV hypoglycemia 04/25/18 16:30 05/25/18 16:29 Docusate Sodium (Colace) 200 mg TWICE A DAY ORAL 04/25/18 21:00 05/25/18 20:59 04/28/18 09:00 Furosemide (Lasix) 20 mg DAILY ORAL 04/25/18 09:00 05/25/18 08:59 04/28/18 09:01 Guaifenesin/ Codeine Phosphate (Robitussin with codeine) 5 ml Q4H PRN ORAL For Cough 04/25/18 04:30 05/25/18 04:29 04/27/18 15:00 Heparin Sodium (Porcine) (Heparin 5000 units/ml) 5,000 units EVERY 12 HOURS SUBQ 04/25/18 11:00 05/25/18 10:59 04/28/18 09:03 Insulin Aspart (NovoLOG) No Dose BEFORE MEALS AND HS SUBQ 04/25/18 16:30 05/25/18 16:29 04/28/18 06:09 Magnesium Hydroxide (Mom) 30 ml DAILYPRN PRN ORAL Constipation 04/25/18 20:30 05/25/18 20:29 04/27/18 16:24 Magnesium Hydroxide (Mom) 30 ml DAILYPRN PRN ORAL Constipation 04/25/18 20:45 05/25/18 04:29 Methylprednisolone Sodium Succinate (Solu-MEDROL) 60 mg EVERY 8 HOURS IVP 04/25/18 14:00 05/25/18 08:59 04/28/18 06:08 Pantoprazole (Protonix) 40 mg DAILY ORAL 04/28/18 09:00 05/28/18 08:59 04/28/18 09:01 Pioglitazone HCl (Actos) 15 mg DAILY ORAL 04/25/18 09:00 05/25/18 08:59 04/28/18 09:02 Repaglinide (Prandin) 2 mg BIAC ORAL 04/25/18 16:30 05/25/18 16:29 04/28/18 06:08 Zolpidem Tartrate (Ambien) 10 mg HSPRN PRN ORAL Insomnia 04/25/18 21:00 05/02/18 20:59 GI: Plan Problems: (1) Constipation Plan KUB reviewed >> moderate fecal retention okay for DC per GI standpoint fleets enema x 1 now rx for amitiza 24mcg given outpatient f/u for severe constipation and screening colonoscopy POC d/w with patient Discussed with Dr. Bautista. Thank you for this patient referral, we will follow. The patient was seen and examined at bedside and all new and available data was reviewed in the patients chart. I agree with the above findings, impression and plan. (Patient seen earlier today. Signature stamp does not reflect patient encounter time.). - MD Chica [facility] MAINSTREAMING FACILITATOR April 28, 2018 09:53
[2018-04-28] MEDS ORDERED: Fleet's Enema 133ml RECTAL ONE (10:00)
--- NOTE | 2018-04-28 11:01 | Diagnostic Imaging Report ---
Indication: Abdominal pain Comparison: None Single view of the abdomen obtained Findings: The degree of stool demonstrated within the colon. The bowel gas pattern is nonspecific. Generalized osteopenia demonstrated. IMPRESSION: Moderate fecal retention
[2018-04-28] MEDS ORDERED: ROBITUSSIN LON118 ML PO (12:54)
[2018-04-28] MEDS ORDERED: AMITIZA8 MCG ORAL (12:55)
[2018-04-28] MEDS ORDERED: BREO ELLIPTA 21 EACH IH (12:56)
[2018-04-28] MEDS ORDERED: PROVENTIL HFA6.7 G1 IH (12:59)
[2018-04-28] MEDS ORDERED: SINGULAIR4 M3 ORAL (12:59)
[2018-04-28] MEDS ORDERED: LINZESS145 MCG PO (13:00)
--- NOTE | 2018-04-30 13:39 | Discharge Summary ---
Discharge Summary Discharge Summary _ DATE OF ADMISSION: 04/24/2018 DATE OF DISCHARGE: 04/28/2018 CONSULTANTS: Dr. Mihir Gale [facility] HOSPITAL COURSE: Patient is an 82-year-old female, with history of asthma, which is intermittent. She presented with cough, congestion and respiratory distress. Patient had been coughing for the past 2 weeks. She noted pain on deep inspiration, worse with exertion. Patient did not improve overall. She presented to emergency room and was diagnosed with acute bronchitis, acute bronchospasm. Patient denied use of inhalers at present. There was no ill contacts, no fever or chills, no chest trauma. She has medical history significant for asthma, gout, hypertension, reflux disease and diabetes. On evaluation at ED, per EMS she was given nebulizer treatment with albuterol. She was started on IV steroid. Blood work showed no leukocytosis. Chest x-ray with no acute disease. EKG was in sinus. She was then admitted for acute bronchitis and acute bronchospasms. She was started empirically on antibiotics. Rocephin was discontinued, she was started on cefepime. She was given cough medications. She was eventually started on Breo and Singulair; steroids were tapered. She was seen by GI she was complaining of constipation for 8 days. She was given an enema and had a small BM. KUB done showed moderate fecal impaction. She was given prescriptions for Amitiza and was recommended to follow-up for an outpatient screening colonoscopy. She was breathing better. She was discharged home on Z-Torin and drawl Dosepak. FINAL DIAGNOSES: Acute asthma exacerbation Possible mild acute bronchitis Significant cough paroxysms Constipation Urinary tract infection Diabetes mellitus DISPOSITION: Patient was discharged home. DISCHARGE INSTRUCTIONS: Follow up with PCP in a week. DISCHARGE MEDICATIONS: Refer to Discharge Medication List. I have been assigned to dictate discharge summary on this account, and I was not involved in the patient's management. Ivana Paz NP Apr 30, 2018 13:39
== END 2018-04-28 14:16 | disposition home or self-care (01) | DRG 202 ==
LOC: EDBD 22:08 → EMR 22:20 → 4E 23:04 → EDBEDREQ 23:39 → 4E 04-25 06:55
DX: J45.901 Unspecified asthma with (acute) exacerbation (principal); N39.0 Urinary tract infection, site not specified; J20.9 Acute bronchitis, unspecified; E11.9 Type 2 diabetes mellitus without complications; M10.9 Gout, unspecified; I10 Essential (primary) hypertension; K21.9 Gastro-esophageal reflux disease without esophagitis; K59.00 Constipation, unspecified
CPT/HCPCS: 36415; 71045; 74018; 80048; 80053; 81003; 82550; 82553; 82962; 83880; 84484; 85007; 85025; 85610; 85730; 87086; 87181; 93005; 94640; 94664; 94760; 99285; J1815; J7620